=== PATIENT | male | born 1955 | race Caucasian/White ===

== ENCOUNTER 2017-10-22 21:30 | Emergency (ER) | payer OTHER ==
[2017-10-22 22:14] VITALS: BP 142/80; PULSE 75; TEMP 99.2; BMI 35.4
--- NOTE | 2017-10-22 22:25 | PDOC ---
History of Present Illness - General Chief Complaint: Pain Stated Complaint: SWOLLEN LEFT TESTICLE Time Seen by Provider: 10/22/17 22:03 - History of Present Illness Initial Comments: This 61-year-old man with a history of CAD, HTN, HLD,Type 2 DM, presents with several day history of painless left sided scrotal edema/mass. Patient states that he has no dysuria/discharge/urinary frequency or urgency/hematuria. No previous history of scrotal masses or urethritis. No history of fever/chills/ nausea/vomiting. No history of scrotal trauma. Patient currently has a urologist: Dr. Arnold Past History - Past Medical History Allergies/Adverse Reactions: Allergies Allergy/AdvReac Type Severity Reaction Status Date / Time No Known Allergies Allergy Unverified 10/22/17 22:04 Home Medications: Ambulatory Orders Amlodipine Besylate [Norvasc -] 5 mg PO DAILY 10/22/17 Atorvastatin Ca [Lipitor] 40 mg PO HS 10/22/17 Clopidogrel Bisulfate [Clopidogrel] 75 mg PO DAILY 10/22/17 Fenofibrate Nanocrystallized [Fenofibrate] 145 mg PO DAILY 10/22/17 Linagliptin [Tradjenta] 5 mg PO HS 10/22/17 Metformin HCl [Glucophage] 1,000 mg PO BID 10/22/17 Metoprolol Tartrate [Lopressor -] 25 mg PO DAILY 10/22/17 Ramipril 5 mg PO DAILY 10/22/17 Ranolazine [Ranexa] 500 mg PO BID 10/22/17 Ciprofloxacin [Cipro (Restricted To Id)] 250 mg PO BID #10 tablet 10/23/17 Cardiac Disorders: Yes (STENT X2) COPD: No Diabetes: Yes (TYPE II) HTN: Yes Hypercholesterolemia: Yes - Suicide/Smoking/Psychosocial Hx Smoking History: Unknown if ever smoked Hx Alcohol Use: No Drug/Substance Use Hx: No Substance Use Type: None Review of Systems - Review of Systems Able to Perform ROS?: Yes Comments:: 12 point review of systems is negative except for what is noted in the history of present illness *Physical Exam - Vital Signs Last Vital Signs Temp Pulse Resp BP Pulse Ox 99.2 F 75 16 142/80 95 10/22/17 22:02 10/22/17 22:02 10/22/17 22:02 10/22/17 22:02 10/22/17 22:02 - Physical Exam Comments: GENERAL: Adult male, alert and oriented 3, in no acute distress HEAD: Normal with no signs of trauma. ABDOMEN:.normal bowel sounds No guarding,tenderness or rebound.No masses No distention. : Moderate edema/no tenderness/no palpable masses left side of scrotum; penis normal without discharge or lesions No abnormality of right side of scrotum EXTREMITIES: Normal range of motion, no edema. No clubbing or cyanosis. No erythema, or tenderness. NEUROLOGICAL: Cranial nerves II through XII grossly intact. Normal speech. No focal neurological deficits. MUSCULOSKELETAL: Back non-tender to palpation, no CVA tenderness SKIN: Warm, Dry, normal turgor, no rashes or lesions noted. Progress Note - Progress Note Progress Note: Scrotal ultrasound shows a large left-sided hydrocele that is complex with septated areas; there is also hypervascularity vascularity suggesting epididymitis/orchitis. No other significant abnormality seen. Results discussed with the patient. Although he has no symptoms consistent with epididymitis/orchitis requiring antibiotic treatment, urinalysis/urine culture and sensitivity is pending. Patient will be started on ciprofloxacin 250 mg now with course for Cipro 250 twice a day will be continued for 4 more days. Meanwhile, he states that his urologist is currently on vacation; he should follow-up with him and he returns from his vacation. If he has worsening pain/swelling or experiences fever/ dysuria, he should return here. *DC/Admit/Observation/Transfer Diagnosis at time of Disposition: Hydrocele Qualifiers: Hydrocele type: unspecified Qualified Code(s): N43.3 - Hydrocele, unspecified - Discharge Dispostion Disposition: HOME Condition at time of disposition: Stable - Prescriptions Prescriptions: Ciprofloxacin [Cipro (Restricted To Id)] 250 mg PO BID #10 tablet - Referrals Referrals: Ethan Arnold MD [Staff Physician] - 1 week - Patient Instructions Printed Discharge Instructions: Hydrocele Additional Instructions: Cipro 250 mg twice a day for 5 days Return if you have pain/burning with urination/fever Follow-up with Dr. Arnold within the next week - Post Discharge Activity
[2017-10-23] MEDS ORDERED: CIPROFLOXACIN 250 MG TABLET (RESTRICTED TO ID) PO ONE ×2 (01:28→01:30)
[2017-10-23 02:14] LABS: URINE APPEARANCE SLCLOUDY; URINE BILIRUBIN NEGATIVE (NEGATIVE); URINE BLOOD NEGATIVE (NEGATIVE); URINE COLOR YELLOW; URINE GLUCOSE (UA) NEGATIVE (NEGATIVE); URINE KETONE NEGATIVE (NEGATIVE); URINE NITRITE NEGATIVE (NEGATIVE); URINE PROTEIN NEGATIVE (NEGATIVE); URINE UROBILINOGEN NEGATIVE mg/dL (0.2-1.0)
[2017-10-23 02:22] LABS: URINE LEUK ESTERASE 3+ (NEGATIVE)
[2017-10-23 02:23] LABS: CALCIUM OXALATE CRYSTALS RARE /hpf (NONE SEEN); EPI CELLS FEW /HPF (FEW); URINE BACTERIA FEW /hpf (NONE SEEN); URINE MUCUS RARE
== END 2017-10-23 01:33 | disposition home or self-care (01) ==
LOC: FER 21:30
DX: N43.3 Hydrocele, unspecified (principal); I10 Essential (primary) hypertension; E78.5 Hyperlipidemia, unspecified; E11.9 Type 2 diabetes mellitus without complications
CPT/HCPCS: 76870-TC; 81003; 81015; 87086; 99281-25